=== PATIENT | female | born 1950 | race American Indian/Alaskan Native ===

== ENCOUNTER 2017-09-21 14:42 | Emergency (ER) | payer MEDICARE ==
[2017-09-21 17:15] LABS: Basophils # (Auto) 0.1 K/mm3 (0.0-0.1); Basophils % (Auto) 1.1 % (0.0-1.8); Eosinophils # (Auto) 0.1 K/mm3 (0.0-0.4); Eosinophils % (Auto) 1.9 % (0.0-4.3); Hematocrit 41.1 % (30.3-42.9); Hemoglobin 13.2 gm/dl (10.1-14.3); Lymphocytes # (Auto) 1.6 K/mm3 (1.2-5.4); Lymphocytes % (Auto) 28.3 % (13.4-35.0); Mean Corpuscular HGB Conc 32 % (30-34); Mean Corpuscular Hemoglobin 29 pg (28-32); Mean Corpuscular Volume 90 fl (79-97); Monocytes # (Auto) 0.5 K/mm3 (0.0-0.8); Monocytes % (Auto) 9.5 % (0.0-7.3); Platelet Count 113 K/mm3 (140-440); Red Blood Count 4.58 M/mm3 (3.65-5.03); Red Cell Distribution Width 14.5 % (13.2-15.2)
[2017-09-21 17:34] LABS: Albumin 3.8 g/dL (3.9-5)
--- NOTE | 2017-09-21 19:06 | XRay Report ---
FINAL REPORT EXAM: XR ABDOMEN 1V AP HISTORY: abdominal pain TECHNIQUE: Supine views of the abdomen PRIORS: None. FINDINGS: A 4 mm calcification overlies the midpole of the right renal shadow, probably renal calculus. There are several faint punctate calcifications elsewhere over the right renal shadow which are also likely small calculi. Over the lateral aspect of the left mid abdomen, there are 2 metallic cylinders measuring approximately 1.5 cm in length and 7 mm in width. They should be confirmed as outside the patient's body. The bowel gas pattern is nonspecific. No free air is identified. Soft tissues have no evidence for mass shadows. Heavy calcification of aorta is seen. Amorphous focal calcification in the right side of the pelvis is likely a fibroid in the uterus measuring 1.6 cm. The bony structures demonstrate 3 orthopedic screws in the proximal left femur. IMPRESSION: 1. nonspecific, nonobstructive bowel gas pattern with no acute process noted. 2. Two metallic cylinders along the left lateral mid abdominal wall. These should be confirmed as outside the patient's body 3. Several right renal calcifications, likely calculi
[2017-09-21] MEDS ORDERED: CATAPRES PO ONE (19:19)
[2017-09-21] MEDS ORDERED: LOPRESSOR PO ONE (20:35)
--- NOTE | 2017-09-21 21:38 | Emergency Department Report ---
ED Abdominal Pain HPI - General Chief Complaint: Abdominal Pain Stated Complaint: ABD PAIN Time Seen by Provider: 09/21/17 16:29 Source: patient, EMS Mode of arrival: Stretcher Limitations: Physical Limitation - History of Present Illness Initial Comments: Patient with confusion this morning per family but not altered. Multiple mild complaints from abdominal pain to chest pain. She is on HD for ESRD and has kept appointments. She is completely oriented for me. With further discussion it appears her abdomen is causing her greatest discomfort. MD Complaint: abdominal pain -: This morning Location: diffuse Radiation: none Migration to: no migration Severity: moderate Severity scale (0 -10): 9 Quality: cramping, fullness, sharp Consistency: constant, intermittent Improves With: nothing Worsens With: movement Associated Symptoms: denies other symptoms - Related Data Previous Rx's Medication Instructions Recorded Last Taken Type Docusate Sodium [Colace] 100 mg PO BID PRN #60 capsule 09/21/17 Unknown Rx Magnesium Citrate [Citrate of 296 ml PO ONCE #1 solution 09/21/17 Unknown Rx Magnesia] cloNIDine [Catapres] 0.1 mg PO BID PRN #20 tablet 09/21/17 Unknown Rx Allergies Allergy/AdvReac Type Severity Reaction Status Date / Time No Known Allergies Allergy Unverified 07/19/13 09:38 ED Review of Systems ROS: Stated complaint: ABD PAIN Other details as noted in HPI Constitutional: denies: chills, fever Eyes: denies: eye pain, eye discharge, vision change ENT: denies: ear pain, throat pain Respiratory: denies: cough, shortness of breath, wheezing Cardiovascular: chest pain (mild and poorly localized.). denies: palpitations Endocrine: no symptoms reported Gastrointestinal: abdominal pain, constipation. denies: nausea, diarrhea Genitourinary: denies: urgency, dysuria, discharge Musculoskeletal: denies: back pain, joint swelling, arthralgia Skin: denies: rash, lesions Neurological: denies: headache, weakness, paresthesias Psychiatric: denies: anxiety, depression Hematological/Lymphatic: denies: easy bleeding, easy bruising ED Past Medical Hx - Past Medical History Hx Hypertension: No Hx Diabetes: No Hx Deep Vein Thrombosis: No Hx Renal Disease: No Hx Sickle Cell Disease: No Hx Seizures: No Hx Asthma: No Hx HIV: No - Social History Smoking Status: Never Smoker Substance Use Type: None - Medications Home Medications: Home Medications Medication Instructions Recorded Confirmed Last Taken Type Docusate Sodium [Colace] 100 mg PO BID PRN #60 capsule 09/21/17 Unknown Rx Magnesium Citrate [Citrate of 296 ml PO ONCE #1 solution 09/21/17 Unknown Rx Magnesia] cloNIDine [Catapres] 0.1 mg PO BID PRN #20 tablet 09/21/17 Unknown Rx ED Physical Exam - General Limitations: Physical Limitation General appearance: alert, in no apparent distress - Head Head exam: Present: atraumatic, normocephalic - Eye Eye exam: Present: other (milky eyes.) - ENT ENT exam: Present: mucous membranes moist - Neck Neck exam: Present: normal inspection - Respiratory Respiratory exam: Present: normal lung sounds bilaterally. Absent: respiratory distress - Cardiovascular Cardiovascular Exam: Present: regular rate, normal rhythm. Absent: systolic murmur, diastolic murmur, rubs, gallop - GI/Abdominal GI/Abdominal exam: Present: soft, tenderness (no peritonitis but grossly TTP. ) , normal bowel sounds - Extremities Exam Extremities exam: Present: normal inspection - Back Exam Back exam: Present: normal inspection - Neurological Exam Neurological exam: Present: alert, oriented X3 - Psychiatric Psychiatric exam: Present: normal affect, normal mood - Skin Skin exam: Present: warm, dry, intact, normal color. Absent: rash ED Course Vital Signs 09/21/17 09/21/17 09/21/17 15:33 16:30 17:00 Temperature 98.4 F Pulse Rate 78 82 Respiratory 20 16 16 Rate Blood Pressure 209/89 Blood Pressure 191/95 [Right] O2 Sat by Pulse 100 98 100 Oximetry 09/21/17 09/21/17 18:45 19:49 Temperature Pulse Rate 85 77 Respiratory 16 Rate Blood Pressure 195/84 Blood Pressure 188/98 [Right] O2 Sat by Pulse 100 Oximetry ED Medical Decision Making - Lab Data Result diagrams: 09/21/17 16:38 09/21/17 16:38 Labs c/w ESRD. Otherwise labs appear unremarkable. - Radiology Data Radiology results: report reviewed Nonspecific gas pattern. No acute findings. - Medical Decision Making Patient with minimal discomfort and appears to have inconsistent bowel function. Her BP was controlled better. She states that sometimes if she has a good BP it improves and she is able to improve. We will give her one dose of mag citrate and encouraged colace for further bowel control. We were able to control her blood pressure with medication. We will give her clonidine for prn use if it gets above 180/100 and follow up [facility] PCP or nephrology for better control. Critical care attestation.: If time is entered above; I have spent that time in minutes in the direct care of this critically ill patient, excluding procedure time. ED Disposition Clinical Impression: Abdominal pain Qualifiers: Abdominal location: generalized Qualified Code(s): R10.84 - Generalized abdominal pain Hypertension Qualifiers: Hypertension type: renovascular hypertension Qualified Code(s): I15.0 - Renovascular hypertension Disposition: TO HOME OR SELFCARE Is pt being admited?: No Does the pt Need Aspirin: No Condition: Good Instructions: Abdominal Pain (ED), Hypertension (ED) Prescriptions: cloNIDine [Catapres] 0.1 mg PO BID PRN #20 tablet PRN Reason: hypertension Docusate Sodium [Colace] 100 mg PO BID PRN #60 capsule PRN Reason: Constipation Magnesium Citrate [Citrate of Magnesia] 296 ml PO ONCE #1 solution Referrals: [facility] [Outside] - 3-5 Days Time of Disposition: 22:10
[2017-09-22 00:46] VITALS: BP 152/84
== END 2017-09-22 00:10 | disposition home or self-care (01) ==
LOC: ED 14:42
DX: R10.84 Generalized abdominal pain (principal); I15.0 Renovascular hypertension
CPT/HCPCS: 36415; 74018; 80053; 85025; 99284